=== PATIENT | male | born 1970 | race Caucasian/White ===

== ENCOUNTER → 2017-06-21 | Outpatient (CLI) | payer BC ==
[2017-06-21 18:15] LABS: ALBUMIN 4.5 gm/dl (3.4-5.0); ALT/SGPT 25 U/L (12-78); BLOOD UREA NITROGEN 12 mg/dl (7-18); CALCIUM 9.4 mg/dl (8.5-10.1); CARBON DIOXIDE 29 mmol/L (21-32); CHOLESTEROL 205 mg/dl (0-200); CREATININE 1.09 mg/dl (0.60-1.40); GLUCOSE 247 mg/dl (70-99); POTASSIUM 4.2 mmol/L (3.5-5.1); SODIUM 135 mmol/L (136-145)
[2017-06-21 18:26] LABS: ALKALINE PHOSPHATASE 51 U/L (45-117); AST/SGOT 11 U/L (15-37); LDL CHOLESTEROL CALCULATED 113 mg/dl; TOTAL PROTEIN 7.6 gm/dl (6.4-8.2)
[2017-06-22 06:40] LABS: HEMOGLOBIN A1C 10.2 % (4.5-5.6)
== END | disposition home or self-care (01) ==
LOC: C.LABPVFM 15:28
PROVIDERS: ATTEND Family Medicine
DX: Z13.29 Encounter for screening for other suspected endocrine disorder (principal); E11.9 Type 2 diabetes mellitus without complications; I10 Essential (primary) hypertension